=== PATIENT | female | born 1945 | race Caucasian/White ===

== ENCOUNTER 2017-11-05 15:50 | Emergency (ER) | payer OTHER, SELFPAY ==
[2017-11-05 16:00] VITALS: BP 142/74; PULSE 80; RESP 14; TEMP 36.4; O2SAT 96
--- NOTE | 2017-11-05 16:05 | DI.RAD.S_ITS ---
PROCEDURE: XR KNEE LT 3V INDICATIONS: fall sp left knee replacement. TECHNIQUE: 3 views of the knee were acquired. COMPARISON: None. FINDINGS: Bones: No fractures or dislocations. No suspicious bony lesions. Knee arthroplasty is present. Hardware is intact without evidence of fracture or loosening. Soft tissues: Mild joint effusion. No suspicious soft tissue calcifications. IMPRESSION: Mild effusion. No visualized acute fracture or dislocation. However, if clinical concern and/or pain persist, short interval imaging followup in 7-10 days is recommended, as occult injury cannot be definitively excluded. Dictated by: Crhisten Kruse M.D. on 11/05/2017 at 18:32 Approved by: Christen Kruse M.D. on 11/05/2017 at 18:32
--- NOTE | 2017-11-05 18:24 | ED_ITS ---
HPI - Skin/Abscess/Foreign Bdy General Chief complaint: Skin/Abscess/Foreign Body Stated complaint: glf, left knee bleeding Time Seen by Provider: 11/05/17 18:12 Source: patient and RN notes reviewed History of Present Illness HPI narrative: Patient is a 71-year-old female who presents left knee laceration. She actually had a total knee arthroscopic be at [facility] 2 or 3 months ago. She tripped going outside [employer] and landed directly on her left knee. She has no numbness or tingling. The incision site did open up. She is able flex extend and move knee freely. There is no metal exposed. MD complaint: laceration Related Data Previous Rx's Medication Instructions Recorded cephalexin [Keflex] 500 mg PO TID #21 cap 11/05/17 Allergies Allergy/AdvReac Type Severity Reaction Status Date / Time No Known Drug Allergies Allergy Verified 11/05/17 16:03 Review of Systems Review of Systems GENERAL: Denies chills,fever HEENT: Denies throat pain RESPIRATORY: Denies dyspnea, cough, wheezing CARDIOVASCULAR: Denies chest pain, palpitations GASTROINTESTINAL: Denies nausea, vomiting MUSCULOSKELETAL: Denies extremity pain, injury SKIN: See HPI NEUROLOGIC: Denies weakness, dizziness, headache, numbness 8 point review of systems is negative except for those stated above and HPI PFSH Social History Smoking Status: Former smoker Exam Initial Vital Signs Initial Vital Signs: Vital Signs Temperature 97.6 F 11/05/17 16:00 Pulse Rate 80 11/05/17 16:00 Respiratory Rate 14 11/05/17 16:00 Blood Pressure 142/74 H 11/05/17 16:00 Pulse Oximetry 96 11/05/17 16:00 GENERAL: Well-appearing, well-nourished and in no acute distress. CARDIOVASCULAR: peripheral pulses in tact, cap refill <2 sec RESPIRATORY: No respiratory distress, speaks in full sentences without difficulty EXTREMITIES: Normal range of motion, no clubbing or edema. Neurovascularly intact NEUROLOGICAL: Cranial nerves II through XII grossly intact. Normal gait and speech. SKIN: Warm, dry, no petechiae, no rashes or lesions. Extrem Left lower extremity: knee Details: normal ROM, knee ligament exam normal and laceration ( long incision site adipose tissue exposed only no foreign body no metal exposure no bone exposure no tendon exposure) Procedures Laceration Repair Laceration 1: Site: lower extremity Side (If applicable): left Size (cm): 9 Description: linear Depth: simple, single layer Local Anesthetic: lidocaine 2% and with epi Amount of anesthesia used (mL): 10 Pre-repair: wound explored, irrigated extensively ( 1000 mL) and deep structures intact Skin layer closed with: nylon Size (cm): 4-0 Number of sutures: 9 Technique: simple, interrupted Course Orders Ordered: Discontinued Medications Cefazolin Sodium (Ancef Vial) 1 gm IV NOW ONE Stop: 11/05/17 18:24 Last Admin: 11/05/17 19:26 Dose: Cefazolin Sodium/Dextrose (Ancef) 1 gm in 50 mls @ 200 mls/hr IV NOW ONE Stop: 11/05/17 19:36 Last Infusion: 11/05/17 19:39 Dose: 0 mls/hr Admin: 11/05/17 19:24 Dose: 200 mls/hr Consultations Consultation #1: Dr. Marino on-call orthopedics has been updated on patient's symptoms. As long as no middle ear bone is exposed agrees with loose superficial closing and close follow-up with primary orthopedic physician at [facility]. Also IV ancef, but no home antibiotics. Time: 18:24 Consultation #2: Dr. Tr Allred at [facility] updated agrees with loose closure reccomends keflex at discharge and close follow up also reccomends texting picture, with the patient's permission a picture has been texted, without any identifying markers Time: 19:15 Vital Signs - 8 hr 11/05/17 16:00 Temperature 97.6 F Pulse Rate 80 Respiratory Rate 14 Blood Pressure 142/74 H Pulse Oximetry 96 MDM - Skin/Abscess/Foreign Bdy Imaging Data lef: Radiologist's impression: PROCEDURE: XR KNEE LT 3V INDICATIONS: fall sp left knee replacement. TECHNIQUE: 3 views of the knee were acquired. COMPARISON: None. FINDINGS: Bones: No fractures or dislocations. No suspicious bony lesions. Knee arthroplasty is present. Hardware is intact without evidence of fracture or loosening. Soft tissues: Mild joint effusion. No suspicious soft tissue calcifications. IMPRESSION: Mild effusion. No visualized acute fracture or dislocation. However , if clinical concern and/or pain persist, short interval imaging followup in 7-10 days is recommended, as occult injury cannot be definitively excluded. Dictated by: Christen Kruse M.D. on 11/05/2017 at 18:32 Discharge Plan Departure Patient Disposition: Home, Self-Care Clinical Impression: Postoperative wound dehiscence Discharge Date/Time: 11/05/17 19:51 Interventions: ED Discharge Assessment Last Done: 11/05/17 19:51 Instructions: DI for Wound Dehiscence Activity Restrictions/Additional Instructions: *You have been diagnosed with left knee fall wound dehiscence *What to do: imperative that you follow up with Orthopedics on for close monitoring. this has high potential for further and worsening infection including infection of the prosthetic *Continue to take medications as directed - Keflex 500 mg 3 times a day *Follow up with your primary care provider in 2-3 days, you should hear from Dr. araiza tomorrow if he does not hear from him by noon please call the office *Return to ER if you should have redness, pus, swelling, fever or any new, worsening or concerning symptoms Prescriptions: New cephalexin [Keflex] 500 mg capsule 500 mg PO TID Qty: 21 RF: 0 Referrals: Bernardo Araiza MD [Non-Staff] -
[2017-11-05] MEDS: CEFAZOLIN 1 GM/50 ML FROZ.PIGGY IV (19:24)
[2017-11-05 19:51] VITALS: BP 124/58; PULSE 85; RESP 16; O2SAT 100
== END 2017-11-05 19:51 | disposition home or self-care (01) ==
PROVIDERS: Emergency Provider Emergency Medicine
DX: S81.012A Laceration without foreign body, left knee, initial encounter (principal); W19.XXXA Unspecified fall, initial encounter
CPT/HCPCS: 12004; 73562; 96374; 99283; 99284